=== PATIENT | female | born 1955 | race Caucasian/White ===

== ENCOUNTER → 2016-10-09 | Outpatient (REF) | payer BC ==
[~2016-10-09] MED LIST: ALBU83IN INH; ASPI81TA60 PO; ATRO0.063 IN; BISO5TAB2 PO; CALC500T51 PO; CO Q200C PO; DEPA1TAB3 PO; LEVA500T PO; LIPI20TA PO; LORA10TA2 PO; MULTCAP PO; NORT25CA2 PO; PRED10TA PO; PRIL20CA PO; TOLT1TAB PO; VITA-130 PO; VITA100041 PO
== END ==
LOC: M LABNEURO 10:39
PROVIDERS: ATTEND Physician Assistant Medical
DX: R51 Headache (principal)

== ENCOUNTER → 2016-12-19 | Outpatient (CLI) | payer BC ==
[~2016-12-19] MED LIST changes: -PRIL20CA PO; +PRIL20CA9 PO
--- NOTE | 2016-12-20 04:15 | REP ---
Clinical: Lung screening. Technique: Axial low-dose noncontrast imaging from the thoracic inlet to the upper abdomen obtained and viewed in lung window settings only. Comparison: 02/28/2015. Findings: The bilateral lung hollingsworth are symmetric, well aerated and clear. No significant pulmonary parenchymal consolidation, nodule or mass lesion appreciated. No significant bronchiectasis. No obvious significant emphysematous changes. Very minimal chronic scarring to the medial right middle lobe is unchanged. No obvious pleural effusion/reaction. Impression: Normal long screening examination. No suspicious findings. Signed by William Valentin MD 12/20/2016 04:07 A
== END ==
LOC: M RAD 12:32
PROVIDERS: ATTEND Internal Medicine Pulmonary Disease
DX: F17.210 Nicotine dependence, cigarettes, uncomplicated (principal)

== ENCOUNTER → 2017-01-07 | Outpatient (REF) | payer BC | LOC: M LABNEURO 12:56 | PROVIDERS: ATTEND Physician Assistant Medical | DX: G43.909 Migraine, unspecified, not intractable, without status migrainosus (principal) ==

== ENCOUNTER → 2018-01-12 | Outpatient (CLI) | payer MEDICARE | LOC: M RAD 08:30 | DX: J44.9 Chronic obstructive pulmonary disease, unspecified (principal); G43.909 Migraine, unspecified, not intractable, without status migrainosus; Z12.2 Encounter for screening for malignant neoplasm of respiratory organs; F17.210 Nicotine dependence, cigarettes, uncomplicated; Z51.81 Encounter for therapeutic drug level monitoring; Z79.899 Other long term (current) drug therapy | CPT/HCPCS: G0297 ==

== ENCOUNTER → 2018-01-16 | Outpatient (CLI) | payer MEDICARE ==
[2018-01-16 11:03] LABS: BASO # 0.1 10^3/uL (0.0-0.2); BASO % 0.5 % (0.0-1.0); EOS # 0.2 10^3/uL (0.0-0.50); EOS % 1.7 % (0.0-3.0); HEMATOCRIT 41.9 % (36.0-47.0); HEMOGLOBIN 13.8 g/dl (12.0-15.5); IMMATURE GRANULOCYTE % 0.4 % (0-3.0); LYMPH # 2.6 10^3/uL (1.5-4.5); MEAN CORPUSCULAR HEMOGLOBIN 29.4 pg (27.0-33.0); MEAN CORPUSCULAR HGB CONC 32.9 g/dl (32.0-36.5); MEAN CORPUSCULAR VOLUME 89.1 fl (80.0-96.0); MONO # 0.7 10^3/uL (0.0-0.8); MONO % 6.2 % (0.0-5.0); NEUTROPHILS # 7.3 10^3/uL (1.8-7.7); NEUTROPHILS % 67.2 % (36.0-66.0); PLATELET COUNT, AUTOMATED 264 10^3/uL (150-450); RED CELL DISTRIBUTION WIDTH 15.2 % (11.5-14.5); WHITE BLOOD COUNT 10.9 10^3/uL (4.0-10.0)
[2018-01-16 11:40] LABS: ALBUMIN 3.1 GM/DL (3.2-5.2); ALBUMIN/GLOBULIN RATIO 0.84 (1.00-1.93); ALKALINE PHOSPHATASE 90 U/L (45-117); ALT/SGPT 19 U/L (12-78); ANION GAP 2 MEQ/L (8-16); AST/SGOT 15 U/L (7-37); BILIRUBIN,TOTAL 0.7 MG/DL (0.2-1.0); BLOOD UREA NITROGEN 17 MG/DL (7-18); CALCIUM LEVEL 8.8 MG/DL (8.8-10.2); CARBON DIOXIDE LEVEL 33 MEQ/L (21-32); CHLORIDE LEVEL 106 MEQ/L (98-107); CREATININE FOR GFR 0.75 MG/DL (0.55-1.30); GLOMERULAR FILTRATION RATE > 60.0 (>45); GLUCOSE, FASTING 84 MG/DL (70-100); POTASSIUM SERUM 4.4 MEQ/L (3.5-5.1); RHEUMATOID FACTOR QUANT < 10.0 IU/ML (<15.0); SODIUM LEVEL 141 MEQ/L (136-145); TOTAL PROTEIN 6.8 GM/DL (6.4-8.2)
[2018-01-18 00:06] LABS: CYCLIC CITRULLINATED PEPTIDE 5 units (0-19)
[2018-01-18 00:06] LABS: ANA (HEP2) Negative (.); RNP ANTIBODY < 0.2 AI (0.0-0.9); SMITHS ANTIBODY < 0.2 AI (0.0-0.9); SSA SJOGRENS A <0.2 AI (0.0-0.9); SSB SJOGRENS B <0.2 AI (0.0-0.9)
== END ==
LOC: M LAB 09:39
DX: Z01.818 Encounter for other preprocedural examination (principal); M35.01 Sjogren syndrome with keratoconjunctivitis; I49.9 Cardiac arrhythmia, unspecified; Z79.899 Other long term (current) drug therapy; M17.0 Bilateral primary osteoarthritis of knee
CPT/HCPCS: 71046

== ENCOUNTER → 2018-01-21 | Outpatient (CLI) | payer MEDICARE | LOC: M WHC 13:06 | DX: M81.0 Age-related osteoporosis without current pathological fracture (principal) | CPT/HCPCS: 77080 ==

== ENCOUNTER 2018-01-26 09:47 | Day surgery (SDC) | payer MEDICARE ==
[~2018-01-26 09:47] MED LIST changes: +ACETAMINOPHEN 325 MG TAB PO; -ALBU83IN INH; -ASPI81TA60 PO; -ATRO0.063 IN; -BISO5TAB2 PO; -CALC500T51 PO; -CO Q200C PO; -DEPA1TAB3 PO; -LEVA500T PO; -LIPI20TA PO; -LORA10TA2 PO; -MULTCAP PO; -NORT25CA2 PO; +PHENYLEPHRINE HCL 10 % OPHTH. SOL 5ML OD; -PRED10TA PO; -PRIL20CA9 PO; -TOLT1TAB PO; -VITA-130 PO; -VITA100041 PO
[2018-01-26] MEDS ORDERED: TRIMETHOBENZAMIDE 300 MG CAP PO (10:00)
[2018-01-26] MEDS: TROPICAMIDE 1% OPHTH SOLN 2ML OD (11:53)
[2018-01-26] MEDS: CYCLOPENTOLATE 2% OPHTH SOLN 2ML BTL OD (11:53)
[2018-01-26] MEDS: PHENYLEPHRINE 2.5% OPHTH SOL 2ML OD (11:53)
[2018-01-26] MEDS: LIDOCAINE 3.5 % 1ML OPHTH TOPICAL GEL OU (11:54)
[2018-01-26] MEDS: OFLOXACIN 0.3 % (OCUFLOX) OPTH SOL 5ML OD (11:54)
[2018-01-26] MEDS: METOPROLOL TART 25 MG TABLET PO (11:56)
[2018-01-26] MEDS ORDERED: MIDAZOLAM INJ 2 MG/2 ML VIAL (J2250) As Ordered (12:40)
[2018-01-26] MEDS ORDERED: fentaNYL 100 MCG/2 ML INJECTION (J3010) As Ordered (12:40)
[2018-01-26] MEDS: TRIAMCINOLONE PRES FR 40 MG/ML 1ML(TRIESENCE)(OR EYE ONLY)(J3300 PER 1MG) As Ordered (13:14)
[2018-01-26] MEDS: HEALON DUET (HEALON 10MG/ML 0.55ML & HEALON ENDOCOAT 30MG/ML 0.85ML) As Ordered (13:14)
[2018-01-26] MEDS: BSS with VANC/TOB/EPI for EYE CASES IR (13:14)
[2018-01-26] MEDS: LIDOCAINE 1% SDV 5 ML VIAL As Ordered (13:14)
[2018-01-26] MEDS: POVIDONE-IODINE 5% OPHTH PREP SOL 30ML As Ordered (13:14)
[2018-01-26] MEDS: MOXIFLOXACIN IN BSS 0.25MG/0.25ML INTRACAMERAL INJ (OR EYE ONLY)(J2280) As Ordered (13:14)
[2018-01-26] MEDS: AcetaZOLAMIDE 500 MG ER CAP PO (13:57)
== END 2018-01-26 14:35 | disposition home or self-care (01) ==
LOC: M SDC 09:47
DX: H25.9 Unspecified age-related cataract (principal); I10 Essential (primary) hypertension; K21.9 Gastro-esophageal reflux disease without esophagitis; J44.9 Chronic obstructive pulmonary disease, unspecified; F32.9 Major depressive disorder, single episode, unspecified; G47.30 Sleep apnea, unspecified; Z79.82 Long term (current) use of aspirin; Z79.51 Long term (current) use of inhaled steroids; Z79.899 Other long term (current) drug therapy
CPT/HCPCS: 66984

== ENCOUNTER 2018-02-03 06:52 | Day surgery (SDC) | payer MEDICARE ==
[~2018-02-03 06:52] MED LIST changes: -PHENYLEPHRINE HCL 10 % OPHTH. SOL 5ML OD; +SLF 3 ML SYR IV
[2018-02-03] MEDS ORDERED: PHENYLEPHRINE HCL 10 % OPHTH. SOL 5ML OS (07:00)
[2018-02-03] MEDS: PHENYLEPHRINE 2.5% OPHTH SOL 2ML OS (07:30)
[2018-02-03] MEDS: LIDOCAINE 3.5 % 1ML OPHTH TOPICAL GEL OU (07:30)
[2018-02-03] MEDS: CYCLOPENTOLATE 2% OPHTH SOLN 2ML BTL OS (07:30)
[2018-02-03] MEDS: TROPICAMIDE 1% OPHTH SOLN 2ML OS (07:35)
[2018-02-03] MEDS: OFLOXACIN 0.3 % (OCUFLOX) OPTH SOL 5ML OS (07:40)
[2018-02-03] MEDS ORDERED: MIDAZOLAM INJ 2 MG/2 ML VIAL (J2250) As Ordered (09:18)
[2018-02-03] MEDS: POVIDONE-IODINE 5% OPHTH PREP SOL 30ML As Ordered (10:21)
[2018-02-03] MEDS: MOXIFLOXACIN IN BSS 0.25MG/0.25ML INTRACAMERAL INJ (OR EYE ONLY)(J2280) As Ordered (10:28)
[2018-02-03] MEDS: TRIAMCINOLONE PRES FR 40 MG/ML 1ML(TRIESENCE)(OR EYE ONLY)(J3300 PER 1MG) As Ordered (10:28)
[2018-02-03] MEDS: LIDOCAINE 1% SDV 5 ML VIAL As Ordered (10:28)
[2018-02-03] MEDS: BSS with VANC/TOB/EPI for EYE CASES IR (10:28)
[2018-02-03] MEDS: HEALON DUET (HEALON 10MG/ML 0.55ML & HEALON ENDOCOAT 30MG/ML 0.85ML) As Ordered (10:28)
[2018-02-03] MEDS: LIDOCAINE 2% W/EPIN INJ 20ML **PRES FREE As Ordered (10:29)
[2018-02-03] MEDS ORDERED: TRIMETHOBENZAMIDE 300 MG CAP PO (11:00)
[2018-02-03] MEDS: AcetaZOLAMIDE 500 MG ER CAP PO (11:11)
== END 2018-02-03 11:15 | disposition home or self-care (01) ==
LOC: M SDC 06:52
DX: H25.9 Unspecified age-related cataract (principal); H57.03 Miosis; J44.9 Chronic obstructive pulmonary disease, unspecified; I10 Essential (primary) hypertension; F32.9 Major depressive disorder, single episode, unspecified; I20.9 Angina pectoris, unspecified; G47.30 Sleep apnea, unspecified; Z79.899 Other long term (current) drug therapy
CPT/HCPCS: 66982

== ENCOUNTER 2018-03-02 20:28 | Emergency (ER) | payer MEDICARE ==
[2018-03-02 21:24] LABS: BASO # 0.1 10^3/uL (0.0-0.2); BASO % 0.5 % (0.0-1.0); EOS # 0.2 10^3/uL (0.0-0.50); EOS % 1.4 % (0.0-3.0); HEMOGLOBIN 13.5 g/dl (12.0-15.5); IMMATURE GRANULOCYTE % 0.3 % (0-3.0); LYMPH # 3.2 10^3/uL (1.5-4.5); LYMPH % 26.1 % (24.0-44.0); MEAN CORPUSCULAR HEMOGLOBIN 30.1 pg (27.0-33.0); MEAN CORPUSCULAR HGB CONC 32.9 g/dl (32.0-36.5); MEAN CORPUSCULAR VOLUME 91.5 fl (80.0-96.0); MONO # 0.9 10^3/uL (0.0-0.8); MONO % 7.5 % (0.0-5.0); NEUTROPHILS # 7.8 10^3/uL (1.8-7.7); NEUTROPHILS % 64.2 % (36.0-66.0); PLATELET COUNT, AUTOMATED 279 10^3/uL (150-450); RED BLOOD COUNT 4.48 10^6/uL (4.00-5.40); RED CELL DISTRIBUTION WIDTH 14.9 % (11.5-14.5); WHITE BLOOD COUNT 12.2 10^3/uL (4.0-10.0)
[2018-03-02 21:36] LABS: ANION GAP 7 MEQ/L (8-16); BLOOD UREA NITROGEN 28 MG/DL (7-18); CALCIUM LEVEL 8.3 MG/DL (8.8-10.2); CARBON DIOXIDE LEVEL 27 MEQ/L (21-32); CHLORIDE LEVEL 111 MEQ/L (98-107); CPK CREATINE PHOSPHOKINASE 40 U/L (26-192); CREATININE FOR GFR 0.67 MG/DL (0.55-1.30); GLOMERULAR FILTRATION RATE > 60.0 (>45); GLUCOSE, FASTING 100 MG/DL (70-100); POTASSIUM SERUM 3.9 MEQ/L (3.5-5.1); SODIUM LEVEL 145 MEQ/L (136-145); TROPONIN I < 0.02 NG/ML (< 0.10)
[2018-03-02 21:37] LABS: CK-MB VALUE MASS < 1.0 NG/ML (<3.6)
[2018-03-02] MEDS: NITROGLYCERIN 0.4 MG SUBL TABLET SL (21:38)
[2018-03-02] MEDS ORDERED: IPRATROPIUM 0.5MG/ALBUTEROL 2.5MG INH SOL UD 3ML (DUONEB)(J7620) As Ordered (21:45)
[2018-03-02] MEDS: IPRATROPIUM 0.5MG/ALBUTEROL 2.5MG INH SOL UD 3ML (DUONEB)(J7620) NEB (21:54)
[2018-03-03] MEDS: MORPHINE 4 MG/ML 1ML VIAL/SYRINGE (J2270) IV (02:26)
[2018-03-03] MEDS ORDERED: ONDANSETRON 4MG/2ML VIAL (J2405) As Ordered (02:33)
[2018-03-03] MEDS: ONDANSETRON 4MG/2ML VIAL (J2405) IV (02:45)
[2018-03-03 03:07] LABS: CK-MB VALUE MASS < 1.0 NG/ML (<3.6); CPK CREATINE PHOSPHOKINASE 31 U/L (26-192); MB/CK RELATIVE INDEX 3.22 (< OR =4); TROPONIN I < 0.02 NG/ML (< 0.10)
== END 2018-03-03 05:29 | disposition home or self-care (01) ==
LOC: M ED 03-03 05:29
DX: R07.9 Chest pain, unspecified (principal); I25.10 Atherosclerotic heart disease of native coronary artery without angina pectoris; F17.210 Nicotine dependence, cigarettes, uncomplicated; Z82.49 Family history of ischemic heart disease and other diseases of the circulatory system
CPT/HCPCS: J2270

== ENCOUNTER → 2018-08-24 | Outpatient (CLI) | payer MEDICARE ==
[2018-08-24 14:42] LABS: VALPROIC ACID (DEPAKOTE) 17.8 UG/ML (50.0-100.0)
== END ==
LOC: M LAB 13:27
DX: R51 Headache (principal); Z51.81 Encounter for therapeutic drug level monitoring; Z79.899 Other long term (current) drug therapy
CPT/HCPCS: 80164; 84443

== ENCOUNTER → 2018-08-24 | Outpatient (CLI) | payer MEDICARE ==
[2018-08-24 14:15] LABS: BASO # 0.1 10^3/uL (0.0-0.2); BASO % 0.9 % (0.0-1.0); EOS # 0.3 10^3/uL (0.0-0.50); EOS % 2.8 % (0.0-3.0); HEMATOCRIT 42.4 % (36.0-47.0); HEMOGLOBIN 13.4 g/dl (12.0-15.5); IMMATURE GRANULOCYTE % 0.6 % (0-3.0); LYMPH # 3.5 10^3/uL (1.5-4.5); LYMPH % 32.5 % (24.0-44.0); MEAN CORPUSCULAR HEMOGLOBIN 29.3 pg (27.0-33.0); MEAN CORPUSCULAR HGB CONC 31.6 g/dl (32.0-36.5); MEAN CORPUSCULAR VOLUME 92.8 fl (80.0-96.0); MONO # 1.1 10^3/uL (0.0-0.8); NEUTROPHILS # 5.7 10^3/uL (1.8-7.7); NEUTROPHILS % 53.2 % (36.0-66.0); PLATELET COUNT, AUTOMATED 278 10^3/uL (150-450); RED BLOOD COUNT 4.57 10^6/uL (4.00-5.40); RED CELL DISTRIBUTION WIDTH 14.7 % (11.5-14.5); WHITE BLOOD COUNT 10.8 10^3/uL (4.0-10.0)
[2018-08-24 14:47] LABS: ALBUMIN 3.1 GM/DL (3.2-5.2); ALBUMIN/GLOBULIN RATIO 0.86 (1.00-1.93); ALKALINE PHOSPHATASE 80 U/L (45-117); ALT/SGPT 27 U/L (12-78); ANION GAP 2 MEQ/L (8-16); AST/SGOT 21 U/L (7-37); BILIRUBIN,TOTAL 0.2 MG/DL (0.2-1.0); BLOOD UREA NITROGEN 25 MG/DL (7-18); CALCIUM LEVEL 8.9 MG/DL (8.8-10.2); CARBON DIOXIDE LEVEL 35 MEQ/L (21-32); CHLORIDE LEVEL 105 MEQ/L (98-107); CHOLESTEROL LEVEL 157 MG/DL (<200); CHOLESTEROL RISK RATIO 2.962 (<5); CREATININE FOR GFR 0.63 MG/DL (0.55-1.30); GLOMERULAR FILTRATION RATE > 60.0 (>45); GLUCOSE, FASTING 74 MG/DL (70-100); HDL CHOLESTEROL 53 MG/DL (>40); LDL CHOLESTEROL 90 MG/DL (<100); NON-HDL-C 104 MG/DL; POTASSIUM SERUM 4.7 MEQ/L (3.5-5.1); SODIUM LEVEL 142 MEQ/L (136-145); TOTAL PROTEIN 6.7 GM/DL (6.4-8.2); TRIGLYCERIDES LEVEL 71 MG/DL (<150); VALPROIC ACID (DEPAKOTE) 17.5 UG/ML (50.0-100.0)
== END ==
LOC: M LAB 13:33
DX: R53.83 Other fatigue (principal); E55.9 Vitamin D deficiency, unspecified; I10 Essential (primary) hypertension; E78.2 Mixed hyperlipidemia
CPT/HCPCS: 84443

== ENCOUNTER → 2018-09-06 | Outpatient (CLI) | payer MEDICARE | LOC: M SLEEP 19:48 | DX: G47.33 Obstructive sleep apnea (adult) (pediatric) (principal); G47.31 Primary central sleep apnea | CPT/HCPCS: 95810 ==

== ENCOUNTER → 2018-10-20 | Outpatient (CLI) | payer MEDICARE ==
[~2018-10-20] MED LIST changes: -ACETAMINOPHEN 325 MG TAB PO; +ALBU83IN INH; +ASPI81TA60 PO; +ATRO0.063 IN; +BISO5TAB2 PO; +CALC500T51 PO; +CO Q200C10 PO; +CYCL10TA; +DEPA1TAB3 PO; +FLUTISP; +GABA-1171; +LEVA1TAB2 PO; +LIPI20TA PO; +LORA-243 PO; +METO1TAB87; +MULTCAP PO; +NORT25CA2 PO; +OXYB5TAB10; +PRED10TA PO; +PRIL20CA9 PO; -SLF 3 ML SYR IV; +SPIR1CAP; +STIO1AER INH; +TOLT60TA PO; +VITA-182 PO; +VITA500T PO
--- NOTE | 2018-10-20 14:35 | REPMRS ---
Patient History The patient states she had a clinical breast exam in 10/2018. Patient is postmenopausal and had first child at age 38. Family history of colorectal cancer at age 50 or over in mother. No Hormone Replacement Therapy Digital Woman Screen Mammo: October 20, 2018 - Exam #: [id number] Bilateral CC and MLO view(s) were taken. Technologist: Ivonne Manning, Technologist Prior study comparison: December 21, 2014, bilateral digital woman screen mammo, performed at [facility]. January 06, 2013, bilateral digital woman screen mammo, performed at [facility]. December 13, 2011, bilateral digital woman screen mammo, performed at [facility]. FINDINGS: The breast tissue is heterogeneously dense. This may lower the sensitivity of mammography. There is a moderate amount of heterogeneously dense fibroglandular tissue which is fairly symmetric. There is no interval development of dominant mass, architectural distortion, or clustered microcalcification typical of malignancy. There has been no change in the appearance of the mammogram from the prior studies. 3-D tomosynthesis shows no additional findings. Assessment: BI-RADS/ACR category 1 mammogram. Negative. Recommendation Routine screening mammogram of both breasts in 1 year (for women over age 40). This patient's Lifetime Breast Cancer RIsk is estimated at 9.2 %. This mammogram was interpreted with the aid of an FDA-approved computer-aided dectection system. Electronically Signed By: Matt Worthington MD 10/20/18 [id number]
== END ==
LOC: M WHC 10:06
PROVIDERS: ATTEND Nurse Practitioner Women's Health
DX: Z01.419 Encounter for gynecological examination (general) (routine) without abnormal findings (principal); Z12.31 Encounter for screening mammogram for malignant neoplasm of breast; Z78.0 Asymptomatic menopausal state; Z80.0 Family history of malignant neoplasm of digestive organs
CPT/HCPCS: 77063; 77067; G0101

== ENCOUNTER → 2019-01-10 | Outpatient (CLI) | payer MEDICARE ==
[~2019-01-10] MED LIST changes: +PRED-351 PO; -PRED10TA PO
--- NOTE | 2019-01-12 07:21 | SLEEPCENT ---
DATE OF STUDY: 01/10/2019 ORDERED BY: Armando Lu DO Nocturnal polysomnography was performed for retitration of pressure therapy in this patient with obstructive sleep apnea syndrome. Apnea-hypopnea index 6.5. For testing, a ResMed Quattro full face mask of extra small size was used. 4 cm of water pressure were applied to the circuit and the lights were extinguished. 8 hours and 21 minutes of data were reviewed. There were 415 minutes of sleep identified. Sleep latency was normal at 10 minutes. REM latency was delayed at 147 minutes. Sleep architecture showed some fragmentation, but overall sleep efficiency was 83.7%. The electrocardiogram showed sinus rhythm with an average heart rate of 65 beats per minute. EEG showed normal waveforms for awake and sleep. Respiratory events were fully palliated with CPAP at a pressure of +7 and remaining measures of sleep physiology were fairly normal. IMPRESSION: Obstructive sleep apnea syndrome (G47.33). RECOMMENDATION: Nightly use of pressure therapy, 7 cm of water. cc: GWENDOLYN Ya
== END ==
LOC: M SLEEP 20:00
PROVIDERS: ATTEND Nurse Practitioner Adult Health
DX: G47.33 Obstructive sleep apnea (adult) (pediatric) (principal)

== ENCOUNTER → 2019-01-22 | Outpatient (CLI) | payer MEDICARE ==
[2019-01-22 09:55] LABS: BASO # 0.1 10^3/uL (0.0-0.2); BASO % 0.9 % (0.0-1.0); EOS # 0.2 10^3/uL (0.0-0.50); EOS % 2.3 % (0.0-3.0); HEMOGLOBIN 14.9 g/dl (12.0-15.5); LYMPH # 3.4 10^3/uL (1.5-4.5); LYMPH % 31.8 % (24.0-44.0); MEAN CORPUSCULAR HEMOGLOBIN 29.8 pg (27.0-33.0); MEAN CORPUSCULAR HGB CONC 32.4 g/dl (32.0-36.5); MONO # 0.7 10^3/uL (0.0-0.8); NEUTROPHILS # 6.1 10^3/uL (1.8-7.7); NEUTROPHILS % 57.6 % (36.0-66.0); PLATELET COUNT, AUTOMATED 273 10^3/uL (150-450); WHITE BLOOD COUNT 10.6 10^3/uL (4.0-10.0)
[2019-01-22 12:32] LABS: BLOOD UREA NITROGEN 16 MG/DL (7-18); CARBON DIOXIDE LEVEL 31 MEQ/L (21-32); CHLORIDE LEVEL 106 MEQ/L (98-107); CREATININE FOR GFR 0.74 MG/DL (0.55-1.30); GLOMERULAR FILTRATION RATE > 60.0 (>45); GLUCOSE, FASTING 90 MG/DL (70-100); POTASSIUM SERUM 4.5 MEQ/L (3.5-5.1); SODIUM LEVEL 142 MEQ/L (136-145)
[2019-01-22 12:33] LABS: ALBUMIN 3.4 GM/DL (3.2-5.2); ALT/SGPT 33 U/L (12-78); BILIRUBIN,TOTAL 0.3 MG/DL (0.2-1.0); CHOLESTEROL LEVEL 211 MG/DL (<200); CHOLESTEROL RISK RATIO 3.102 (<5); HDL CHOLESTEROL 68 MG/DL (>40); NON-HDL-C 143 MG/DL; TOTAL PROTEIN 6.7 GM/DL (6.4-8.2); TRIGLYCERIDES LEVEL 75 MG/DL (<150)
[2019-01-22 12:34] LABS: FREE T4 1.04 NG/DL (0.76-1.46)
== END ==
LOC: M LAB 09:16
PROVIDERS: ATTEND Physician Assistant Medical
DX: R53.83 Other fatigue (principal); I10 Essential (primary) hypertension; E78.2 Mixed hyperlipidemia

== ENCOUNTER → 2019-01-22 | Outpatient (CLI) | payer MEDICARE ==
--- NOTE | 2019-01-22 10:15 | REP ---
Low-dose lung screening CT of the chest: Comparison is 01/12/2018. The study is performed without IV contrast. Images are presented at lung windowing only. There is a small focal stable parenchymal scar in the left upper lobe on image 36, unchanged. There are no nodules or masses. There are no infiltrates or effusions. Impression: Category 2 low-dose lung screening CT of the chest. The probability of malignancy is less than 1%. Depending on risk factors, annual follow-up low-dose lung screening CT is recommended. Electronically Signed by Nacho Downey MD 01/22/2019 10:07 A
== END ==
LOC: M RAD 09:33
PROVIDERS: ATTEND Internal Medicine Pulmonary Disease
DX: Z12.2 Encounter for screening for malignant neoplasm of respiratory organs (principal); Z87.891 Personal history of nicotine dependence; R53.83 Other fatigue; I10 Essential (primary) hypertension; E78.2 Mixed hyperlipidemia
CPT/HCPCS: 36415; 80053; 80061; 84439; 84443; 85025; G0297

== ENCOUNTER → 2019-02-15 | Outpatient (CLI) | payer MEDICARE ==
[~2019-02-15] MED LIST changes: +ASPI81TA85 PO; +CALC1TAB30 PO; +OXYC1TAB23 PO; +VITA100054 PO
--- NOTE | 2019-02-15 11:32 | REP ---
Chest two views HISTORY: Preop Comparison: 01/16/2018 Linear densities are present in the right lower lobe consistent with atelectasis or scar. The heart is normal in size. The pulmonary vasculature is normal in appearance. The bony structure is intact. IMPRESSION: Right lower lobe atelectasis or scar. Electronically Signed by Fransico Mcknight MD 02/15/2019 11:24 A
== END ==
LOC: M RAD 10:37
PROVIDERS: ATTEND Physician Assistant Medical
DX: Z01.818 Encounter for other preprocedural examination (principal); J98.11 Atelectasis; N81.4 Uterovaginal prolapse, unspecified

== ENCOUNTER → 2019-03-11 | Outpatient (REF) | payer MEDICARE | LOC: M LAB REF 12:54 | PROVIDERS: ATTEND Obstetrics & Gynecology | DX: N39.3 Stress incontinence (female) (male) (principal) ==

== ENCOUNTER → 2019-09-27 | Outpatient (CLI) | payer MEDICARE ==
[2019-09-27 19:30] LABS: BASO # 0.1 10^3/uL (0.0-0.2); BASO % 0.7 % (0.0-1.0); EOS # 0.2 10^3/uL (0.0-0.5); HEMATOCRIT 47.3 % (36.0-47.0); HEMOGLOBIN 14.9 g/dl (12.0-15.5); LYMPH # 2.4 10^3/uL (1.5-5.0); LYMPH % 23.1 % (24.0-44.0); MEAN CORPUSCULAR HEMOGLOBIN 28.5 pg (27.0-33.0); MEAN CORPUSCULAR HGB CONC 31.5 g/dl (32.0-36.5); MEAN CORPUSCULAR VOLUME 90.6 fl (80.0-96.0); MONO # 0.6 10^3/uL (0.0-0.8); MONO % 5.8 % (0.0-5.0); NEUTROPHILS # 7.1 10^3/uL (1.5-8.5); NEUTROPHILS % 68.1 % (36.0-66.0); PLATELET COUNT, AUTOMATED 252 10^3/uL (150-450); RED BLOOD COUNT 5.22 10^6/uL (4.00-5.40); WHITE BLOOD COUNT 10.4 10^3/uL (4.0-10.0)
[2019-09-27 20:00] LABS: ERYTHROCYTE SEDIMENTATION RATE 21 mm/hr (0-30)
== END ==
LOC: M LAB 18:29
PROVIDERS: ATTEND Ophthalmology Retina Specialist
DX: H44.112 Panuveitis, left eye (principal)

== ENCOUNTER → 2019-09-29 | Outpatient (CLI) | payer MEDICARE ==
[2019-09-29 10:27] LABS: AMORPHOUS SEDIMENT SMALL (NEGATIVE); APPEARANCE, URINE CLEAR (CLEAR); BACTERIA, URINE AUTO NEGATIVE (NEGATIVE); BILIRUBIN, URINE AUTO NEGATIVE (NEGATIVE); BLOOD, URINE BLOOD NEGATIVE (NEGATIVE); COLOR, URINE YELLOW (YELLOW); GLUCOSE, URINE (UA) AUTO NEGATIVE (NEGATIVE); KETONE, URINE AUTO NEGATIVE (NEGATIVE); LEUKOCYTE ESTERASE, URINE AUTO NEGATIVE (NEGATIVE); NITRITE, URINE AUTO NEGATIVE (NEGATIVE); PROTEIN, URINE AUTO NEGATIVE (NEGATIVE); RBC, URINE AUTO 1 /HPF (0-3); SPECIFIC GRAVITY URINE AUTO 1.004 (1.002-1.035); SQUAMOUS EPITHELIAL CELL UR AU 0 /HPF (0-6); UROBILINOGEN, URINE AUTO 0.2 mg/dL (0.0-2.0); WBC, URINE AUTO 1 /HPF (0-3)
--- NOTE | 2019-09-30 08:25 | REP ---
Clinical: Chest pain. History of COPD . Comparison: 02/15/2019 . Technique: PA and lateral. Findings: The mediastinum and cardiac silhouette are normal. The lung hollingsworth are clear and without acute consolidation, effusion, or pneumothorax. The skeletal structures are intact and normal. Impression: 1. No acute cardiopulmonary process. Electronically Signed by William Valentin MD 09/29/2019 10:17 A
== END ==
LOC: M LAB 09:40
PROVIDERS: ATTEND Ophthalmology
DX: J44.9 Chronic obstructive pulmonary disease, unspecified (principal); H44.002 Unspecified purulent endophthalmitis, left eye

== ENCOUNTER → 2019-11-15 | Outpatient (REF) | payer MEDICARE ==
[2019-11-15 18:05] LABS: RHEUMATOID FACTOR QUANT < 10.0 IU/ML (<15.0); VALPROIC ACID (DEPAKOTE) 29.8 UG/ML (50.0-100.0)
[2019-11-15 18:10] LABS: BASO # 0.1 10^3/uL (0.0-0.2); BASO % 0.8 % (0.0-1.0); EOS # 0.3 10^3/uL (0.0-0.5); EOS % 2.5 % (0.0-3.0); HEMATOCRIT 43.5 % (36.0-47.0); HEMOGLOBIN 13.3 g/dl (12.0-15.5); MEAN CORPUSCULAR HEMOGLOBIN 28.9 pg (27.0-33.0); MEAN CORPUSCULAR HGB CONC 30.6 g/dl (32.0-36.5); MEAN CORPUSCULAR VOLUME 94.4 fl (80.0-96.0); MONO # 0.8 10^3/uL (0.0-0.8); NEUTROPHILS # 5.9 10^3/uL (1.5-8.5); NEUTROPHILS % 58.3 % (36.0-66.0); PLATELET COUNT, AUTOMATED 267 10^3/uL (150-450); RED BLOOD COUNT 4.61 10^6/uL (4.00-5.40); WHITE BLOOD COUNT 10.1 10^3/uL (4.0-10.0)
[2019-11-15 18:47] LABS: ERYTHROCYTE SEDIMENTATION RATE 21 mm/hr (0-30)
[2019-11-18 00:14] LABS: ANTINUCLEAR ANTIBODIES DIRECT Negative (Negative)
== END ==
LOC: M LABNEURO 17:07
PROVIDERS: ATTEND Physician Assistant Medical
DX: R51 Headache (principal); H54.7 Unspecified visual loss

== ENCOUNTER → 2019-11-29 | Outpatient (REF) | payer MEDICARE ==
[2019-11-29 13:46] LABS: BLOOD UREA NITROGEN 25 MG/DL (7-18); CREATININE FOR GFR 0.72 MG/DL (0.55-1.30); GLOMERULAR FILTRATION RATE > 60.0 (>45)
== END ==
LOC: M LABNEURO 10:37
PROVIDERS: ATTEND Physician Assistant Medical
DX: I10 Essential (primary) hypertension (principal)

== ENCOUNTER → 2019-12-06 | Outpatient (CLI) | payer MEDICARE ==
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
== END ==
LOC: M PAIN 13:00
PROVIDERS: ATTEND Nurse Practitioner Family
DX: M79.18 Myalgia, other site (principal); M46.1 Sacroiliitis, not elsewhere classified; J44.9 Chronic obstructive pulmonary disease, unspecified; Z86.59 Personal history of other mental and behavioral disorders; I10 Essential (primary) hypertension; G43.909 Migraine, unspecified, not intractable, without status migrainosus; F17.210 Nicotine dependence, cigarettes, uncomplicated; Z79.82 Long term (current) use of aspirin; Z79.899 Other long term (current) drug therapy

== ENCOUNTER → 2019-12-15 | Outpatient (CLI) | payer MEDICARE | LOC: M LAB 13:33 | PROVIDERS: ATTEND Physician Assistant Medical | DX: D35.2 Benign neoplasm of pituitary gland (principal) ==

== ENCOUNTER → 2020-01-27 | Outpatient (CLI) | payer MEDICARE ==
[~2020-01-27] MED LIST changes: +CYCL-707; -CYCL10TA; +VITA-243 PO; -VITA500T PO
--- NOTE | 2020-01-27 09:35 | REP ---
REASON: Tobacco abuse. Followup lung nodules. All prior chest CTs have been reviewed the latest of which is dated 01/22/2019, also a low-dose screening examination. As per the protocol, only lung window images were sent to the read station for interpretation. The lung hollingsworth are unchanged. No new abnormal nodules, masses, or opacities have developed. There are no pleural or pericardial effusions. Grossly, the mediastinum and pulmonary david are unchanged. Grossly, the imaged upper abdomen and imaged osseous structures are unchanged. IMPRESSION: Stable low dose screening CT examination of the chest. No new abnormalities. There is mild bibasilar cylindrical bronchiectasis status quo. There is an unchanged small focal left upper lobe asymmetric opacity likely limiting a small patch of fibrosis or chronic subsegmental atelectatic change. Lung RADS category 2 exam. ? Electronically Signed by Spenser Jacob DO 01/27/2020 10:50 A
== END ==
LOC: M RAD 08:46
PROVIDERS: ATTEND Internal Medicine Pulmonary Disease
DX: Z87.891 Personal history of nicotine dependence (principal); R91.8 Other nonspecific abnormal finding of lung field

== ENCOUNTER → 2021-03-08 | Outpatient (CLI) | payer MEDICARE, OTHER, SELFPAY ==
[~2021-03-08] MED LIST changes: -ASPI81TA85 PO; +ASPI81TA86 PO
--- NOTE | 2021-03-08 12:33 | REP ---
INDICATION: COPD. COMPARISON: Multiple the latest 01/27/2020. TECHNIQUE: Axial noncontrast images from the thoracic inlet to the upper abdomen using low-dose lung screening technique (LDCT). As per the protocol only lung window images were sent to the read station for interpretation. FINDINGS: No new abnormal nodules, masses, or opacities have developed. The focal left upper lobe opacity seen previously appears somewhat less dense today. A tiny nodular density in the inferior aspect of the right upper lobe has also been stable for years. There is cylindrical bronchiectasis status quo. Grossly, the mediastinum and pulmonary david are unchanged. Grossly, the imaged upper abdomen and imaged osseous structures are unchanged. IMPRESSION: Stable lung rads category 2 low-dose screening CT examination of the lungs. As per the revised Fleischner society criteria yearly CT screening examination of the lungs is recommended if clinically appropriate. <Electronically signed by Spenser Jacob > 03/08/21 2500
== END ==
LOC: M RAD 12:09
PROVIDERS: ATTEND Internal Medicine Pulmonary Disease
DX: Z12.2 Encounter for screening for malignant neoplasm of respiratory organs (principal); J44.9 Chronic obstructive pulmonary disease, unspecified; F17.210 Nicotine dependence, cigarettes, uncomplicated; R91.8 Other nonspecific abnormal finding of lung field

== ENCOUNTER → 2022-03-19 | Outpatient (CLI) | payer MEDICARE ==
[~2022-03-19] MED LIST changes: +ALBU2.5V10 INH; -ALBU83IN INH; +BISO1TAB18 PO; -BISO5TAB2 PO
== END ==
LOC: M RAD 09:01
PROVIDERS: ATTEND Internal Medicine Pulmonary Disease
DX: Z12.2 Encounter for screening for malignant neoplasm of respiratory organs (principal); R91.8 Other nonspecific abnormal finding of lung field; Z87.891 Personal history of nicotine dependence

== ENCOUNTER 2022-05-26 19:13 | Inpatient (IN) | payer MEDICARE ==
[~2022-05-26] VITALS: Ht 152.4 cm; Wt 56.5 kg
[~2022-05-26 19:13] MED LIST changes: -ALBU2.5V10 INH; +ALBU2.5V10 NEB; -FLUTISP; +FLUTISP NARES; -GABA-1171; +GABA-1171 PO; -OXYB5TAB10; +OXYB5TAB10 PO
[2022-05-26 19:51] LABS: BASO # 0.1 10^3/uL (0.0-0.2); EOS # 0.2 10^3/uL (0.0-0.5); EOS % 2.1 % (0.0-3.0); HEMATOCRIT 38.1 % (36.0-47.0); LYMPH # 3.2 10^3/uL (1.5-5.0); LYMPH % 33.2 % (24.0-44.0); MEAN CORPUSCULAR HEMOGLOBIN 28.2 pg (27.0-33.0); MEAN CORPUSCULAR HGB CONC 31.5 g/dl (32.0-36.5); MEAN CORPUSCULAR VOLUME 89.6 fl (80.0-96.0); MONO # 0.7 10^3/uL (0.0-0.8); NEUTROPHILS # 5.5 10^3/uL (1.5-8.5); NEUTROPHILS % 56.3 % (36.0-66.0); PLATELET COUNT, AUTOMATED 266 10^3/uL (150-450); RED BLOOD COUNT 4.25 10^6/uL (4.00-5.40); WHITE BLOOD COUNT 9.7 10^3/uL (4.0-10.0)
[2022-05-26 20:06] LABS: PARTIAL THROMBOPLASTIN TIME 28.6 SECONDS (25.9-37.0); PROTHROMBIN TIME 13.6 SECONDS (12.7-14.5)
[2022-05-26] MEDS ORDERED: ROSU20TA5 PO (20:16)
[2022-05-26 20:39] LABS: BLOOD UREA NITROGEN 15 MG/DL (7-18); CALCIUM LEVEL 7.7 MG/DL (8.8-10.2); CARBON DIOXIDE LEVEL 29 MEQ/L (21-32); CHLORIDE LEVEL 109 MEQ/L (98-107); CREATININE FOR GFR 0.92 MG/DL (0.55-1.30); GLOMERULAR FILTRATION RATE > 60.0 (>45); GLUCOSE, FASTING 96 MG/DL (70-100); MAGNESIUM LEVEL 1.7 MG/DL (1.8-2.4); POTASSIUM SERUM 3.8 MEQ/L (3.5-5.1); SODIUM LEVEL 141 MEQ/L (136-145)
[2022-05-26] MEDS ORDERED: METO1TAB33 PO (21:22)
[2022-05-26] MEDS ORDERED: VITMTA PO (21:22)
[2022-05-26] MEDS ORDERED: ALEN70TA82 PO (21:22)
[2022-05-26] MEDS ORDERED: LOSA50TA28 PO (21:22)
[2022-05-26] MEDS ORDERED: MONT10TA97 PO (21:22)
[2022-05-26] MEDS ORDERED: ASPI-161 PO (21:22)
[2022-05-26] MEDS ORDERED: PARO20TA3 PO (21:22)
[2022-05-26] MEDS ORDERED: NORT50CA PO (21:22)
[2022-05-26] MEDS ORDERED: PATIENT COMMENT (21:23)
[2022-05-26] MEDS ORDERED: HOME MED LIST COMPLETE! XX SCH (21:25)
[2022-05-26] MEDS ORDERED: MAG SULF 1GM/100ML (MAG RUN) 1 GM in IV 1 EA IV ONE (22:15)
[2022-05-26] MEDS ORDERED: ACETAMINOPHEN TAB 650MG DOSE (2X325MG) PO PRN (22:20)
[2022-05-26] MEDS ORDERED: MOM 30ML SUSPENSION UDC PO PRN (22:20)
[2022-05-26] MEDS: NS 1,000 ML IV SCH (22:20)
[2022-05-26] MEDS ORDERED: ALBUTEROL SULFATE 2.5 MG/0.5 ML INH NEB SOLN NEB PRN (23:20)
[2022-05-27] MEDS: HEPARIN SOD (PORCINE) 5000UNITS/ML 1ML VIAL/SYRINGE SC SCH ×3 (05:56→21:07)
[2022-05-27 06:57] LABS: HEMATOCRIT 38.1 % (36.0-47.0); HEMOGLOBIN 11.9 g/dl (12.0-15.5); MEAN CORPUSCULAR HEMOGLOBIN 28.3 pg (27.0-33.0); MEAN CORPUSCULAR HGB CONC 31.2 g/dl (32.0-36.5); MEAN CORPUSCULAR VOLUME 90.7 fl (80.0-96.0); PLATELET COUNT, AUTOMATED 247 10^3/uL (150-450); WHITE BLOOD COUNT 8.7 10^3/uL (4.0-10.0)
[2022-05-27 07:39] LABS: ALBUMIN 2.6 GM/DL (3.2-5.2); ALT/SGPT 11 U/L (12-78); BILIRUBIN,TOTAL 0.4 MG/DL (0.2-1.0); BLOOD UREA NITROGEN 19 MG/DL (7-18); CALCIUM LEVEL 8.5 MG/DL (8.8-10.2); CARBON DIOXIDE LEVEL 32 MEQ/L (21-32); CHLORIDE LEVEL 106 MEQ/L (98-107); GLOMERULAR FILTRATION RATE > 60.0 (>45); GLUCOSE, FASTING 85 MG/DL (70-100); MAGNESIUM LEVEL 2.3 MG/DL (1.8-2.4); POTASSIUM SERUM 4.3 MEQ/L (3.5-5.1); SODIUM LEVEL 141 MEQ/L (136-145); TOTAL PROTEIN 5.8 GM/DL (6.4-8.2)
[2022-05-27 08:05] LABS: VALPROIC ACID (DEPAKOTE) 30.6 UG/ML (50.0-100.0)
[2022-05-27] MEDS: oxyBUTYnin 5 MG TAB PO SCH ×2 (08:29→21:06)
[2022-05-27] MEDS: DOCUSATE SODIUM 100MG CAPSULE PO SCH ×2 (08:29→21:00)
[2022-05-27] MEDS: PARoxetine 20MG TABLET PO SCH (08:29)
[2022-05-27] MEDS: ROSUVASTATIN 10 MG TAB (CRESTOR) PO SCH (08:29)
[2022-05-27] MEDS: MONTELUKAST 10 MG TAB PO SCH (08:29)
[2022-05-27] MEDS: ASPIRIN 81MG ENTERIC TABLET PO SCH (08:29)
[2022-05-27] MEDS: LOSARTAN 50MG TABLET PO SCH (08:29)
[2022-05-27] MEDS: GABAPENTIN 100 MG CAP PO SCH ×2 (08:29→21:06)
[2022-05-27] MEDS: DIVALPROEX 500 MG TAB PO SCH ×2 (08:29→21:06)
[2022-05-27] MEDS ORDERED: METOPROLOL SUCC (TopROL XL) 100MG *XL* TAB PO SCH (09:00)
[2022-05-27] MEDS: NS 1,000 ML IV SCH (10:53)
[2022-05-27 14:08] VITALS: BP 144/65
[2022-05-27] MEDS: NORTRIPTYLINE 25 MG CAP PO SCH (15:47)
[2022-05-27 16:18] VITALS: BP 136/77
[2022-05-27] MEDS: TIOTROPIUM INHALER/CAPSULE (SPIRIVA) INH SCH (17:55)
[2022-05-27 20:00] VITALS: BP 161/81
[2022-05-28] VITALS: BP 142/69
[2022-05-28] MEDS ORDERED: ISOVUE-370 76% 100ML VIAL As Ordered ONE (00:13)
[2022-05-28 04:00] VITALS: BP 146/84
[2022-05-28] MEDS ORDERED: PILOCARPINE 2% OPHTH 15 ML SOLN OS SCH (04:00)
[2022-05-28] MEDS ORDERED: cefTRIAXone SOD 2 GM in D5W MINI-BAG PLUS 50 ML IV SCH (04:00)
[2022-05-28] MEDS ORDERED: TIMOLOL MALEATE 0.5% OPHTH SOLN 5 ML OS SCH (04:00)
[2022-05-28] MEDS ORDERED: VANCOMYCIN HCL 1,000 MG, VIAL MATE ADAPTER 1 EACH in NS 250 ML IV ONE (05:00)
[2022-05-28] MEDS: HEPARIN SOD (PORCINE) 5000UNITS/ML 1ML VIAL/SYRINGE SC SCH (05:16)
[2022-05-28 06:39] LABS: BLOOD UREA NITROGEN 20 MG/DL (7-18); CALCIUM LEVEL 8.2 MG/DL (8.8-10.2); CARBON DIOXIDE LEVEL 27 MEQ/L (21-32); CHLORIDE LEVEL 106 MEQ/L (98-107); CREATININE FOR GFR 0.76 MG/DL (0.55-1.30); GLOMERULAR FILTRATION RATE > 60.0 (>45); GLUCOSE, FASTING 97 MG/DL (70-100); MAGNESIUM LEVEL 1.8 MG/DL (1.8-2.4); POTASSIUM SERUM 3.8 MEQ/L (3.5-5.1); SODIUM LEVEL 138 MEQ/L (136-145)
[2022-05-28 08:00] VITALS: BP 154/66
[2022-05-28] MEDS: TIOTROPIUM INHALER/CAPSULE (SPIRIVA) INH SCH (08:11)
[2022-05-28] MEDS ORDERED: METOPROLOL SUCC *XL* 25MG TAB (TopROL *XL*) PO SCH (09:00)
[2022-05-28] MEDS: DIVALPROEX 500 MG TAB PO SCH (09:46)
[2022-05-28] MEDS: NORTRIPTYLINE 25 MG CAP PO SCH (09:47)
[2022-05-28] MEDS: LOSARTAN 50MG TABLET PO SCH (09:47)
[2022-05-28] MEDS: PARoxetine 20MG TABLET PO SCH (09:47)
[2022-05-28] MEDS: DOCUSATE SODIUM 100MG CAPSULE PO SCH (09:47)
[2022-05-28 09:48] VITALS: BP 154/66
[2022-05-28] MEDS: ROSUVASTATIN 10 MG TAB (CRESTOR) PO SCH (09:49)
[2022-05-28] MEDS: MONTELUKAST 10 MG TAB PO SCH (09:49)
[2022-05-28] MEDS: oxyBUTYnin 5 MG TAB PO SCH (09:49)
[2022-05-28] MEDS: GABAPENTIN 100 MG CAP PO SCH (09:49)
[2022-05-28] MEDS: ASPIRIN 81MG ENTERIC TABLET PO SCH (09:49)
[2022-05-28] MEDS ORDERED: COLA100C5 PO (10:08)
[2022-05-28] MEDS ORDERED: METO1TAB33 PO (10:08)
[2022-05-28] MEDS ORDERED: VANCOMYCIN HCL 500 MG in D5W MINI-BAG PLUS 100 ML IV SCH (17:00)
== END 2022-05-28 11:20 | disposition home or self-care (01) | DRG 312 ==
LOC: EDBD 19:13 → M ED 19:13 → M ED INP 22:19 → ENRESERV 05-27 12:55 → M PCU 05-27 13:51
PROVIDERS: ADMIT Family Medicine; ATTEND Family Medicine
PROC: B246ZZZ Ultrasonography of Right and Left Heart (ICD-10-PCS; principal; 2022-05-26)
DX: R55 Syncope and collapse (principal); H40.9 Unspecified glaucoma; J44.9 Chronic obstructive pulmonary disease, unspecified; E11.9 Type 2 diabetes mellitus without complications; Z90.79 Acquired absence of other genital organ(s); Z90.49 Acquired absence of other specified parts of digestive tract; F17.210 Nicotine dependence, cigarettes, uncomplicated; Z79.82 Long term (current) use of aspirin; Z79.891 Long term (current) use of opiate analgesic; Z79.899 Other long term (current) drug therapy

== ENCOUNTER → 2022-06-12 | Outpatient (CLI) | payer MEDICARE ==
[~2022-06-12] MED LIST changes: +ALEN70TA82 PO; +ASPI-161 PO; +COLA100C5 PO; +LOSA50TA28 PO; +METO1TAB33 PO; +MONT10TA97 PO; +NORT50CA PO; +PARO20TA3 PO; +PATIENT COMMENT; +ROSU20TA5 PO; +VITMTA PO
[2022-06-12 11:12] LABS: BASO # 0.1 10^3/uL (0.0-0.2); BASO % 0.8 % (0.0-1.0); EOS # 0.1 10^3/uL (0.0-0.5); EOS % 1.5 % (0.0-3.0); HEMOGLOBIN 13.9 g/dl (12.0-15.5); LYMPH % 24.8 % (24.0-44.0); MEAN CORPUSCULAR HEMOGLOBIN 28.4 pg (27.0-33.0); MEAN CORPUSCULAR HGB CONC 31.6 g/dl (32.0-36.5); MEAN CORPUSCULAR VOLUME 89.8 fl (80.0-96.0); MONO # 0.8 10^3/uL (0.0-0.8); MONO % 10.4 % (2.0-8.0); NEUTROPHILS # 4.9 10^3/uL (1.5-8.5); NEUTROPHILS % 62.1 % (36.0-66.0); PLATELET COUNT, AUTOMATED 316 10^3/uL (150-450); WHITE BLOOD COUNT 7.9 10^3/uL (4.0-10.0)
[2022-06-12 11:54] LABS: ALBUMIN 3.4 GM/DL (3.2-5.2); ALT/SGPT 15 U/L (12-78); BILIRUBIN,TOTAL 0.4 MG/DL (0.2-1.0); BLOOD UREA NITROGEN 21 MG/DL (7-18); CALCIUM LEVEL 9.2 MG/DL (8.8-10.2); CARBON DIOXIDE LEVEL 31 MEQ/L (21-32); CHLORIDE LEVEL 101 MEQ/L (98-107); CREATININE FOR GFR 0.85 MG/DL (0.55-1.30); GLOMERULAR FILTRATION RATE > 60.0 (>45); GLUCOSE, FASTING 102 MG/DL (70-100); POTASSIUM SERUM 3.6 MEQ/L (3.5-5.1); SODIUM LEVEL 136 MEQ/L (136-145); TOTAL PROTEIN 7.7 GM/DL (6.4-8.2)
[2022-06-13 19:09] LABS: ANGIOTENSIN 1 CONVERTING ENZYM 34 U/L (14-82); TOXOPLASMA IgG ABY <3.0 IU/mL (0.0-7.1)
== END ==
LOC: M LAB 09:17
PROVIDERS: ATTEND Student in an Organized Health Care Education/Training Program
DX: H44.113 Panuveitis, bilateral (principal); Z79.51 Long term (current) use of inhaled steroids; Z79.899 Other long term (current) drug therapy; Z79.82 Long term (current) use of aspirin

== ENCOUNTER → 2022-07-16 | Outpatient (CLI) | payer MEDICARE | LOC: M LAB 12:20 | PROVIDERS: ATTEND Ophthalmology | DX: H44.112 Panuveitis, left eye (principal) ==

== ENCOUNTER → 2022-10-21 | Outpatient (CLI) | payer MEDICARE | LOC: M RAD 12:20 | PROVIDERS: ATTEND Internal Medicine Pulmonary Disease | DX: R91.8 Other nonspecific abnormal finding of lung field (principal) ==

== ENCOUNTER → 2023-01-24 | Outpatient (CLI) | payer MEDICARE ==
[~2023-01-24] MED LIST changes: +FLUT50SP17 NARES; -FLUTISP NARES
[2023-01-24 13:35] LABS: RHEUMATOID FACTOR QUANT 6.2 IU/ML (<14)
[2023-01-24 13:36] LABS: HEPATITIS B SURFACE ANTIBODY NEGATIVE (POSITIVE)
== END ==
LOC: M RAD 11:50
PROVIDERS: ATTEND Ophthalmology
DX: H15.011 Anterior scleritis, right eye (principal)

== ENCOUNTER → 2023-02-12 | Outpatient (CLI) | payer MEDICARE | LOC: M PLAIMG 12:11 | PROVIDERS: ATTEND Internal Medicine Pulmonary Disease | DX: J43.2 Centrilobular emphysema (principal); R91.1 Solitary pulmonary nodule; I25.10 Atherosclerotic heart disease of native coronary artery without angina pectoris ==

== ENCOUNTER → 2023-03-18 | Outpatient (CLI) | payer MEDICARE ==
[~2023-03-18] MED LIST changes: -ROSU20TA5 PO; +ROSU20TA61 PO
[2023-03-18 15:27] LABS: BASO # 0.1 10^3/uL (0.0-0.2); BASO % 0.9 % (0.0-1.0); EOS # 0.2 10^3/uL (0.0-0.5); HEMATOCRIT 43.1 % (36.0-47.0); HEMOGLOBIN 13.5 g/dl (12.0-15.5); LYMPH # 2.4 10^3/uL (1.5-5.0); LYMPH % 25.7 % (24.0-44.0); MEAN CORPUSCULAR HEMOGLOBIN 28.4 pg (27.0-33.0); MEAN CORPUSCULAR HGB CONC 31.3 g/dl (32.0-36.5); MEAN CORPUSCULAR VOLUME 90.7 fl (80.0-96.0); MONO # 0.6 10^3/uL (0.0-0.8); MONO % 6.9 % (2.0-8.0); NEUTROPHILS # 5.9 10^3/uL (1.5-8.5); NEUTROPHILS % 64.1 % (36.0-66.0); PLATELET COUNT, AUTOMATED 388 10^3/uL (150-450); RED BLOOD COUNT 4.75 10^6/uL (4.00-5.40); WHITE BLOOD COUNT 9.2 10^3/uL (4.0-10.0)
[2023-03-18 15:47] LABS: ALBUMIN 3.4 G/DL (3.2-5.2); ALKALINE PHOSPHATASE 81 U/L (46-116); ALT/SGPT < 9 U/L (7.0-40); AST/SGOT 12 U/L (<34); BILIRUBIN,TOTAL 0.5 MG/DL (0.3-1.2); BLOOD UREA NITROGEN 18 MG/DL (9-23); CALCIUM LEVEL 9.5 MG/DL (8.3-10.6); CARBON DIOXIDE LEVEL 30 MMOL/L (20-31); CHLORIDE LEVEL 102 MMOL/L (98-107); CHOLESTEROL LEVEL 177 MG/DL (<200); CHOLESTEROL RISK RATIO 2.95 (<5); CREATININE FOR GFR 0.73 MG/DL (0.55-1.30); CREATININE, URINE 127.3 MG/DL; GLOMERULAR FILTRATION RATE > 60.0 (>45); GLUCOSE, FASTING 99 MG/DL (74-106); LDL CHOLESTEROL 96.2 MG/DL (<100); SODIUM LEVEL 138 MMOL/L (136-145); TOTAL PROTEIN 7.1 G/DL (5.7-8.2); TRIGLYCERIDES LEVEL 104 MG/DL (<150)
[2023-03-18 15:48] LABS: FREE T4 1.06 NG/DL (0.89-1.76); THYROID STIMULATING HORMONE 1.659 uIU/ML (0.55-4.78); TOTAL 25(OH) VITAMIN D 27.4 NG/ML (20.0-100.0)
[2023-03-18 15:49] LABS: MAU/CREAT RATIO 17.2 MCG/MG (0.0-30.0)
== END ==
LOC: M PLALAB 09:37
PROVIDERS: ATTEND Nurse Practitioner Family
DX: R73.03 Prediabetes (principal); E78.2 Mixed hyperlipidemia; I10 Essential (primary) hypertension; E55.9 Vitamin D deficiency, unspecified

== ENCOUNTER → 2023-03-27 | Outpatient (CLI) | payer MEDICARE | LOC: M WHC 08:37 | PROVIDERS: ATTEND Nurse Practitioner Family | DX: Z12.31 Encounter for screening mammogram for malignant neoplasm of breast (principal) ==

== ENCOUNTER → 2023-07-18 | Outpatient (CLI) | payer MEDICARE ==
[~2023-07-18] MED LIST changes: +CHLO125TA PO; +FAMO40TA3 PO; +METF-839 PO; -OXYB5TAB10 PO; +OXYB5TAB11 PO; +PREDOPD
[2023-07-18 15:43] LABS: BASO # 0.1 10^3/uL (0.0-0.2); EOS # 0.2 10^3/uL (0.0-0.5); EOS % 2.4 % (0.0-3.0); HEMATOCRIT 42.9 % (36.0-47.0); HEMOGLOBIN 13.2 g/dl (12.0-15.5); LYMPH # 2.5 10^3/uL (1.5-5.0); LYMPH % 31.2 % (24.0-44.0); MEAN CORPUSCULAR HEMOGLOBIN 28.1 pg (27.0-33.0); MEAN CORPUSCULAR HGB CONC 30.8 g/dl (32.0-36.5); MEAN CORPUSCULAR VOLUME 91.3 fl (80.0-96.0); MONO # 0.6 10^3/uL (0.0-0.8); MONO % 7.7 % (2.0-8.0); NEUTROPHILS # 4.5 10^3/uL (1.5-8.5); NEUTROPHILS % 57.4 % (36.0-66.0); PLATELET COUNT, AUTOMATED 334 10^3/uL (150-450); WHITE BLOOD COUNT 7.9 10^3/uL (4.0-10.0)
[2023-07-18 16:02] LABS: ALBUMIN 3.2 G/DL (3.2-5.2); ALKALINE PHOSPHATASE 89 U/L (46-116); ALT/SGPT 15 U/L (7.0-40); AST/SGOT 19 U/L (<34); BILIRUBIN,TOTAL 0.2 MG/DL (0.3-1.2); BLOOD UREA NITROGEN 27 MG/DL (9-23); CALCIUM LEVEL 9.3 MG/DL (8.3-10.6); CARBON DIOXIDE LEVEL 34 MMOL/L (20-31); CHLORIDE LEVEL 104 MMOL/L (98-107); CHOLESTEROL LEVEL 197 MG/DL (<200); CHOLESTEROL RISK RATIO 2.67 (<5); CREATININE FOR GFR 0.68 MG/DL (0.55-1.30); GLOMERULAR FILTRATION RATE > 60.0 (>45); GLUCOSE, FASTING 80 MG/DL (74-106); HDL CHOLESTEROL 73.6 MG/DL (>40); LDL CHOLESTEROL 103.4 MG/DL (<100); NON-HDL-C 123.4 MG/DL; POTASSIUM SERUM 4.4 MMOL/L (3.5-5.1); SODIUM LEVEL 143 MMOL/L (136-145); TOTAL PROTEIN 7.1 G/DL (5.7-8.2); TRIGLYCERIDES LEVEL 100 MG/DL (<150)
[2023-07-18 16:03] LABS: TOTAL 25(OH) VITAMIN D 22.4 NG/ML (20.0-100.0)
[2023-07-18 16:16] LABS: HEMOGLOBIN A1c 5.9 % (4.0-6.0)
== END ==
LOC: M PLALAB 12:18
PROVIDERS: ATTEND Nurse Practitioner Family
DX: R73.03 Prediabetes (principal); E78.2 Mixed hyperlipidemia; I10 Essential (primary) hypertension; E55.9 Vitamin D deficiency, unspecified

== ENCOUNTER → 2024-01-21 | Outpatient (CLI) | payer MEDICARE, OTHER ==
[~2024-01-21] MED LIST changes: -ASPI-161 PO; +ASPI-615 PO; -FLUT50SP17 NARES; +FLUTISP NARES; -OXYB5TAB11 PO; +OXYB5TAB14 PO
[2024-01-21 15:44] LABS: ALBUMIN 3.7 G/DL (3.2-5.2); ALKALINE PHOSPHATASE 89 U/L (46-116); ALT/SGPT < 9 U/L (7.0-40); AST/SGOT 15 U/L (<34); BILIRUBIN,TOTAL 0.5 MG/DL (0.3-1.2); BLOOD UREA NITROGEN 18 MG/DL (9-23); CALCIUM LEVEL 9.8 MG/DL (8.3-10.6); CARBON DIOXIDE LEVEL 32 MMOL/L (20-31); CHLORIDE LEVEL 106 MMOL/L (98-107); CHOLESTEROL LEVEL 209 MG/DL (<200); CHOLESTEROL RISK RATIO 3.47 (<5); CREATININE FOR GFR 0.66 MG/DL (0.55-1.30); GLOMERULAR FILTRATION RATE > 60.0 (>45); GLUCOSE, FASTING 101 MG/DL (74-106); HDL CHOLESTEROL 60.1 MG/DL (>40); LDL CHOLESTEROL 123.9 MG/DL (<100); NON-HDL-C 148.9 MG/DL; POTASSIUM SERUM 3.8 MMOL/L (3.5-5.1); SODIUM LEVEL 141 MMOL/L (136-145); TOTAL PROTEIN 7.3 G/DL (5.7-8.2); TRIGLYCERIDES LEVEL 125 MG/DL (<150)
[2024-01-21 15:46] LABS: TOTAL 25(OH) VITAMIN D 16.8 NG/ML (20.0-100.0)
[2024-01-21 16:00] LABS: HEMOGLOBIN A1c 5.9 % (4.0-6.0)
[2024-01-21 16:05] LABS: BASO # 0.1 10^3/uL (0.0-0.2); BASO % 0.8 % (0.0-1.0); EOS # 0.2 10^3/uL (0.0-0.5); EOS % 1.7 % (0.0-3.0); HEMATOCRIT 43.8 % (36.0-47.0); HEMOGLOBIN 13.8 g/dl (12.0-15.5); LYMPH # 2.5 10^3/uL (1.5-5.0); MEAN CORPUSCULAR HEMOGLOBIN 28.3 pg (27.0-33.0); MEAN CORPUSCULAR HGB CONC 31.5 g/dl (32.0-36.5); MEAN CORPUSCULAR VOLUME 89.9 fl (80.0-96.0); MONO # 0.6 10^3/uL (0.0-0.8); MONO % 6.2 % (2.0-8.0); NEUTROPHILS # 6.2 10^3/uL (1.5-8.5); NEUTROPHILS % 64.9 % (36.0-66.0); PLATELET COUNT, AUTOMATED 320 10^3/uL (150-450); RED BLOOD COUNT 4.87 10^6/uL (4.00-5.40); WHITE BLOOD COUNT 9.6 10^3/uL (4.0-10.0)
== END ==
LOC: M PLALAB 12:25
PROVIDERS: ATTEND Nurse Practitioner Family
DX: R73.03 Prediabetes (principal); E78.2 Mixed hyperlipidemia; E55.9 Vitamin D deficiency, unspecified

== ENCOUNTER → 2024-03-29 | Outpatient (CLI) | payer OTHER | LOC: M WHC 07:56 | PROVIDERS: ATTEND Nurse Practitioner Family | DX: Z12.31 Encounter for screening mammogram for malignant neoplasm of breast (principal); R92.333 Mammographic heterogeneous density, bilateral breasts ==

== ENCOUNTER → 2024-05-26 | Outpatient (CLI) | payer OTHER | LOC: M RAD 10:52 | PROVIDERS: ATTEND Internal Medicine Pulmonary Disease | DX: Z12.2 Encounter for screening for malignant neoplasm of respiratory organs (principal); Z87.891 Personal history of nicotine dependence; R91.8 Other nonspecific abnormal finding of lung field; J47.9 Bronchiectasis, uncomplicated ==

== ENCOUNTER → 2024-06-14 | Outpatient (CLI) | payer OTHER ==
[2024-06-14 14:54] LABS: ALBUMIN 3.5 G/DL (3.2-5.2); ALKALINE PHOSPHATASE 82 U/L (46-116); ALT/SGPT 18 U/L (7.0-40); AST/SGOT 15 U/L (<34); BILIRUBIN,TOTAL 0.5 MG/DL (0.3-1.2); BLOOD UREA NITROGEN 35 MG/DL (9-23); CALCIUM LEVEL 9.7 MG/DL (8.3-10.6); CARBON DIOXIDE LEVEL 29 MMOL/L (20-31); CHLORIDE LEVEL 107 MMOL/L (98-107); CREATININE FOR GFR 0.72 MG/DL (0.55-1.30); GLOMERULAR FILTRATION RATE > 60.0 (>45); GLUCOSE, FASTING 107 MG/DL (74-106); POTASSIUM SERUM 3.5 MMOL/L (3.5-5.1); SODIUM LEVEL 143 MMOL/L (136-145); TOTAL PROTEIN 7.3 G/DL (5.7-8.2)
== END ==
LOC: M LAB 13:50
PROVIDERS: ATTEND Ophthalmology
DX: H44.113 Panuveitis, bilateral (principal)

== ENCOUNTER → 2024-11-11 | Outpatient (REF) | payer OTHER ==
[~2024-11-11] MED LIST changes: -ROSU20TA61 PO; +ROSU20TA86 PO
[2024-11-11 14:37] LABS: ALBUMIN 3.4 G/DL (3.2-5.2); ALKALINE PHOSPHATASE 88 U/L (35-104); ALT/SGPT 12 U/L (7.0-40); AST/SGOT 15 U/L (<34); BILIRUBIN,TOTAL 0.3 MG/DL (0.3-1.2); BLOOD UREA NITROGEN 27 MG/DL (9-23); CALCIUM LEVEL 9.4 MG/DL (8.3-10.6); CARBON DIOXIDE LEVEL 31 MMOL/L (20-31); CHLORIDE LEVEL 108 MMOL/L (98-107); CHOLESTEROL LEVEL 186 MG/DL (<200); CHOLESTEROL RISK RATIO 2.57 (<5); CREATININE FOR GFR 0.81 MG/DL (0.55-1.30); GLOMERULAR FILTRATION RATE > 60.0 (>45); GLUCOSE, FASTING 99 MG/DL (74-106); HDL CHOLESTEROL 72.2 MG/DL (>40); NON-HDL-C 113.8 MG/DL; POTASSIUM SERUM 4.7 MMOL/L (3.5-5.1); SODIUM LEVEL 146 MMOL/L (136-145); TOTAL PROTEIN 7.3 G/DL (5.7-8.2); TRIGLYCERIDES LEVEL 69 MG/DL (<150)
[2024-11-11 14:42] LABS: THYROID STIMULATING HORMONE 2.844 uIU/ML (0.55-4.78); TOTAL 25(OH) VITAMIN D 19.3 NG/ML (20.0-100.0)
[2024-11-11 15:06] LABS: HIV 1&2 SCREEN NEGATIVE (NEGATIVE)
[2024-11-11 15:13] LABS: HEPATITIS C VIRUS ABY INDEX 0.13 INDEX (<0.8)
[2024-11-11 15:16] LABS: HEMOGLOBIN A1c 5.8 % (4.0-6.0)
== END ==
LOC: M LAB REF 12:58
PROVIDERS: ATTEND Physician Assistant
DX: I63.9 Cerebral infarction, unspecified (principal); E55.9 Vitamin D deficiency, unspecified; Z11.9 Encounter for screening for infectious and parasitic diseases, unspecified; E07.9 Disorder of thyroid, unspecified

== ENCOUNTER 2025-06-18 01:07 | Emergency (ER) | payer MEDICARE ==
[~2025-06-18] VITALS: Ht 152.4 cm; Wt 50.9 kg
[2025-06-18 01:09] VITALS: TEMP 97.2
[2025-06-18 04:48] VITALS: BP 178/102
[2025-06-18] MEDS: LABETALOL 100 MG TAB PO ONE (04:48)
[2025-06-18 06:12] VITALS: BP 170/89; O2SAT 100
[2025-06-18] MEDS ORDERED: AMOX875T2 PO (06:23)
== END 2025-06-18 06:30 | disposition home or self-care (01) ==
LOC: M ED 01:07
DX: J01.80 Other acute sinusitis (principal); I10 Essential (primary) hypertension; J44.9 Chronic obstructive pulmonary disease, unspecified; Z86.73 Personal history of transient ischemic attack (TIA), and cerebral infarction without residual deficits; Z87.891 Personal history of nicotine dependence; Z88.8 Allergy status to other drugs, medicaments and biological substances; Z79.51 Long term (current) use of inhaled steroids; Z79.2 Long term (current) use of antibiotics; Z79.1 Long term (current) use of non-steroidal anti-inflammatories (NSAID); Z79.84 Long term (current) use of oral hypoglycemic drugs; Z79.899 Other long term (current) drug therapy; Z79.52 Long term (current) use of systemic steroids

== ENCOUNTER → 2025-07-06 | Outpatient (CLI) | payer MEDICARE ==
[~2025-07-06] MED LIST changes: +AMOX875T2 PO
== END ==
LOC: M RAD 10:56
PROVIDERS: ATTEND Internal Medicine Pulmonary Disease
DX: Z87.891 Personal history of nicotine dependence (principal)